=== PATIENT | female | born 1965 | race Caucasian/White ===

== ENCOUNTER 2025-05-03 20:44 | Inpatient (IN) | payer MEDICARE, SELFPAY ==
[2025-05-03 22:34] VITALS: BP 151/86; PULSE 80; RESP 17; TEMP 36.7; O2SAT 100; BMI 18.2
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
[2025-05-04 08:00] VITALS: BP 153/84; PULSE 94; RESP 18; O2SAT 94
[2025-05-04 08:36] LABS: Hemoglobin A1C 81.0472 umol/L; Total Hemoglobin (HGBA1C) 2580.1810 umol/L
[2025-05-04 08:52] LABS: Cholesterol 187 mg/dL (<200); HDL Cholesterol 68 mg/dL (>40); Magnesium 1.8 mg/dL (1.6-2.6); Triglycerides 57 mg/dL (<150)
[2025-05-04 09:09] LABS: Free T4 (Free Thyroxine) 0.81 ng/dL (0.71-1.85); Thyroid Stimulating Hormone 1.39 uIU/mL (0.32-4.0)
[2025-05-04 09:21] LABS: Folate 12.3 ng/mL (> or = 4.0); Vitamin B12 434 pg/mL (200-900)
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
[2025-05-04 20:00] VITALS: RESP 15
[2025-05-05 07:53] VITALS: BP 100/71; PULSE 80; RESP 18; TEMP 36.6; O2SAT 100
[2025-05-05] MEDS: Nicotine 21 MG PATCH.TD24 TRANSDERMA (15:40)
--- NOTE | 2025-05-05 16:48 | HO.PSYCHPN ---
Subjective Subjective Date of Service: 05/05/25 Reason For Visit: Disorder, manic, severe, with psychotic features Subjective Notes: Section 12B Interim History: Pt approached tw first thing to demand a discharge date. Pt was offered education about donna and she verbally exploded-precipitating team to stand between us during this outburst. Denies donna-accuses this typewriters functional tester of not knowing what donna is due to ZUMBA INSTRUCTOR vs MD status. Caustic. Pt approached tw later in the a.m. We met x 2. She was pressured, hyperverbal, tangential and poorly organized, covering several topics. She refuses antipsychotics as she is not manic, but enlightened She will accept Valium prn which was adjusted. Her behaviors on the unit have negatively engaged her peers and she responds that she does not care as she enjoys making scenes. She would like to be considered for discharge, asks for a real MD who will understand her. Medication Compliance: Intermittent Side effects from medications: No Attending Groups: No Review of Systems Acute medical concerns: No Review of Systems Review of Systems Denies Mental Status Exam Mental Status Exam Patient Appearance: Fatigued, Disheveled, Inappropriate, Unkempt and Bizarre Patient Orientation: Person, Place and Situation Level of Consciousness: Restless, Alert and Inappropriate Patient Behavior: Talkative, Hyperactive, Suspicious, Restless, Belligerent, Wandering, Verbal Threats, Anxious, Resistive to Care, Distractible, Confused, Good Eye Contact and Impulsive Mood Description: Hostile, Labile and Angry Affect Description: Labile Patient Cognition Impaired: Yes Ability to Follow Directions: Fair Speech Pattern: Spontaneous Speech, Rambling, Animated, Loud, Pressured and Excited Memory Description: Remote Impaired Hallucinations: None Delusions: Paranoid Ideation Thought Process: Illogical and Distracted Thought Content: positive for Flight of Ideas, positive for Racing, positive for Circumstantial, positive for Perseveration, positive for Preoccupation, positive for Tangential and positive for Disorganized Depressive Symptoms: Increased Irritability and Difficulty Concentrating Abnormal Motor Activity Signs and Symptoms: Agitation and Restlessness Judgement: Poor Diagnostics Vital Signs (24Hr): Vital Signs - 24 hr 05/04/25 20:00 05/05/25 07:53 Temperature 97.9 F Pulse Rate 80 Respiratory Rate 15 18 Blood Pressure 100/71 Pulse Oximetry 100 Oxygen Delivery Method Room Air BMI result Body Mass Index 18.2 Labs Labs: Laboratory Results - last 48 hr 05/04/25 08:07 Estimat Average Glucose 97 Hemoglobin A1c % 5.0 Magnesium 1.8 Triglycerides 57 Cholesterol 187 LDL Cholesterol, Calc 108 H HDL Cholesterol 68 Vitamin B12 434 Folate 12.3 TSH 1.39 Free T4 0.81 Medications Medications Current Medications Acetaminophen (Acetaminophen 325 Mg Tablet) 650 mg PO Q6H PRN PRN Reason: Headache/Pain, Scale 1-10 Last Admin: 05/05/25 14:59 Dose: 650 mg Al Hydroxide/Mg Hydroxide (Magnesium Hydrox/Alum Hydrox 30 Ml Oral.Susp) 30 ml PO Q6H PRN PRN Reason: Heartburn/Nausea Diazepam (Diazepam 5 Mg Tablet) 10 mg PO QID PRN PRN Reason: anxiety Last Admin: 05/05/25 10:41 Dose: 10 mg Dicyclomine HCl (Dicyclomine Hcl 10 Mg Capsule) 20 mg PO QIDACHS [facility] Last Admin: 05/05/25 16:27 Dose: Not Given Docusate Sodium (Docusate Sodium 100 Mg Capsule) 100 mg PO BEDTIME [facility] Last Admin: 05/04/25 21:20 Dose: 100 mg Folic Acid (Folic Acid 1 Mg Tablet) 1 mg PO DAILY [facility] Last Admin: 05/05/25 08:35 Dose: Not Given Hydroxyzine HCl (Hydroxyzine Hcl 25 Mg Tablet) 25 mg PO Q6H PRN PRN Reason: mild anxiety Last Admin: 05/05/25 14:59 Dose: 25 mg Magnesium Hydroxide (Milk Of Magnesia 30 Ml Oral.Susp) 30 ml PO DAILY PRN PRN Reason: Constipation Melatonin (Melatonin 3 Mg Tablet) 6 mg PO BEDTIME [facility] Last Admin: 05/04/25 22:03 Dose: Not Given Multivitamins/Vitamin C (Multivitamin Tablet) 1 tab PO DAILY [facility] Last Admin: 05/05/25 08:35 Dose: Not Given Nicotine (Nicotine 21 Mg Patch.Td24) 21 mg TRANSDERMA DAILY [facility] Last Admin: 05/05/25 15:40 Dose: 21 mg Olanzapine (Olanzapine 5 Mg Tablet) 5 mg PO Q4H PRN PRN Reason: donna,agitation Olanzapine (Olanzapine 5 Mg Tablet) 5 mg PO BID [facility] Quetiapine Fumarate (Quetiapine Fumarate 50 Mg Tablet) 50 mg PO BEDTIME [facility] Last Admin: 05/04/25 22:04 Dose: Not Given Quetiapine Fumarate (Quetiapine Fumarate 50 Mg Tablet) 50 mg PO Q4H PRN PRN Reason: anxiety Senna (Sennosides 8.6 Mg Tablet) 17.2 mg PO BEDTIME PRN PRN Reason: Constipation Last Admin: 05/04/25 21:20 Dose: 17.2 mg Thiamine HCl (Thiamine Hcl 100 Mg Tablet) 100 mg PO DAILY PEE Last Admin: 05/05/25 08:35 Dose: Not Given Trazodone HCl (Trazodone Hcl 50 Mg Tablet) 50 mg PO BEDTIME MRX1 PRN PRN Reason: Insomnia Last Admin: 05/04/25 02:45 Dose: 50 mg Allergies Allergies Allergy/AdvReac Type Severity Reaction Status Date / Time No Known Allergies Allergy Verified 05/03/25 22:21 Assessment & Plan Assessment & Plan (1) Bipolar affective, manic: Status: Acute Code(s): F31.10 - Bipolar disorder, current episode manic without psychotic features, unspecified (2) Alcohol use disorder, severe, dependence: Status: Acute Code(s): F10.20 - Alcohol dependence, uncomplicated Plan Admit, Section XII Refusing any meds except Valium, Ativan Collateral Contact Refusing diagnostics Stabilization efforts 05/05: Valium 10 mg qid prn anxiety Olanzapine 5 mg bid Probable Section 7 Reason for continued inpatient stay Substantial Risk for: inability to function and rapid decompensation Time Spent With Patient Time: Total time managing care of this patient today ____ minutes.
[2025-05-05 20:00] VITALS: BP 112/86; PULSE 87; RESP 15; TEMP 36.6; O2SAT 98
--- NOTE | 2025-05-06 | ECG_ITS ---
Test Reason : CP/ fever/chills Blood Pressure : */* mmHG Vent. Rate : 110 BPM Atrial Rate : 110 BPM P-R Int : 140 ms QRS Dur : 82 ms QT Int : 322 ms P-R-T Axes : 56 66 56 degrees QTcB Int : 435 ms Sinus tachycardia Otherwise normal ECG No previous ECGs available Referred By: Emilio Reyez Electronically Signed By: Hema Garcia
[2025-05-06 08:00] VITALS: BP 138/68; PULSE 87; RESP 18; TEMP 37.4; O2SAT 100
[2025-05-06] MEDS: Nicotine 21 MG PATCH.TD24 TRANSDERMA (08:05)
[2025-05-06 20:00] VITALS: BP 120/69; PULSE 115; TEMP 36.8; O2SAT 96
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
[2025-05-07 08:00] VITALS: RESP 18
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
[2025-05-08 09:34] VITALS: BP 117/67; PULSE 94; TEMP 36.8; O2SAT 95
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
[2025-05-09 20:00] VITALS: BP 114/63; PULSE 95; TEMP 36.6; O2SAT 99
--- NOTE | 2025-05-09 21:51 | PC.NURSE ---
Patient refused nearly all scheduled HS medications, loudly saying Don't fucking talk to me about those bipolar meds ever fucking again! I'M NOT BIPOLAR AND YOUR DOCTORS ARE STUPID! This specification writer had not mentioned the word bipolar in any of our exchange. Patient was very angry and dismissive with this specification writer, refusing any assessment.
[2025-05-10 08:00] VITALS: BP 129/67; PULSE 87; RESP 18; TEMP 36.4; O2SAT 99
--- NOTE | 2025-05-10 16:18 | HO.PSYCHPN ---
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 Patient Time: Total time managing care of this patient today ____ minutes.
[2025-05-10 19:58] LABS: Alanine Aminotransferase 21 U/L (0-31); Albumin Level 3.9 g/dL (3.5-5.0); Alkaline Phosphatase 52 U/L (39-117); Anion Gap 10 (12-20); Aspartate Amino Transferase 18 U/L (5-31); Blood Urea Nitrogen 9 mg/dL (9-16); Calcium 9.1 mg/dL (8.4-10.2); Carbon Dioxide 25 mmol/L (22-29); Chloride 103 mmol/L (96-108); Creatinine Clr Calc Pharmacy 97.2; Estimated Glomerular Filt Rate > 60; Potassium 4.3 mmol/L (3.3-5.1); Sodium 134 mmol/L (135-145); Total Protein 6.8 g/dL (6.5-8.0)
[2025-05-11 08:00] VITALS: BP 142/52; PULSE 98; RESP 18; TEMP 36; O2SAT 99
[2025-05-11 09:42] VITALS: BMI 19.3
--- NOTE | 2025-05-11 16:51 | P.PNPSI_ITS ---
Subjective Subjective Date of Service: 05/11/25 Reason For Visit: Disorder, manic, severe, with psychotic features Interim History: Met with patient; discussed with RN. Patient remains manic, grandiose, pressured, intrusive. Patient only willing to take Valium. Poor insight into her mental state. Patient says she wants to be discharged so she can go to [place]. She says she is very wealthy. Talks about her ex , children and how accomplished they are. She asks this check writer salesperson where he is from, and then says she met the and had lunch with him and his family but when asked what his name was she doesn't know. I don't remember the names. I was always drunk. Review of Systems Review of Systems Denies shortness of breath or trouble breathing. Denies cough. Denies fatigue. Denies SI. Reports constipation. Yes all other systems are reviewed and are negative and Unobtainable due to mental status Mental Status Exam Mental Status Exam Narrative: Pt is alert and oriented; behavior is manic, hyperverbal, intrusive, verbally aggressive, posturing at times, yelling at staff; patient is not in distress; dressed in casual attire, disheveled, matted hair; mood is described as i'm angry... and affect intense; eye contact intense; Speech is pressured, loud, rambling and very difficult to interrupt; psychomotor agitation present; thought process is goal directed, excessively circumstantial and often tangential; Thought content is angry about being hospitalized; life exploits; denies any SI/HI. Denies AVH Patients insight and judgment are impaired. Patient Appearance: Disheveled, Inappropriate, Unkempt and Bizarre Patient Orientation: Person, Place and Situation Level of Consciousness: Restless, Alert and Inappropriate Patient Behavior: Talkative, Hyperactive, Suspicious, Restless, Belligerent, Wandering, Verbal Threats, Anxious, Resistive to Care, Distractible, Confused, Good Eye Contact and Impulsive Mood Description: Suspicious, Anxious, Labile and Angry Affect Description: Anxious and Labile Patient Cognition Impaired: Yes Ability to Follow Directions: Poor Speech Pattern: Spontaneous Speech, Rambling, Animated, Loud, Pressured and Excited Memory Description: Remote Impaired Diagnostics Vital Signs (24Hr): Vital Signs - 24 hr 05/11/25 08:00 Temperature 96.8 F Pulse Rate 98 Respiratory Rate 18 Blood Pressure 142/52 H Pulse Oximetry 99 Oxygen Delivery Method Room Air BMI result Body Mass Index 19.3 Labs 05/10/25 19:26 Labs: Laboratory Results - last 48 hr 05/10/25 19:26 Sodium 134 L Potassium 4.3 Chloride 103 Carbon Dioxide 25 Anion Gap 10 L BUN 9 Creatinine 0.46 L Estim Creat Clear Calc 97.2 Estimated GFR > 60 Random Glucose 107 Calcium 9.1 Total Bilirubin 0.1 AST 18 ALT 21 Alkaline Phosphatase 52 Total Protein 6.8 Albumin 3.9 Medications Medications Current Medications Acetaminophen (Acetaminophen 325 Mg Tablet) 650 mg PO Q6H PRN PRN Reason: Headache/Pain, Scale 1-10 Last Admin: 05/09/25 11:42 Dose: 650 mg Al Hydroxide/Mg Hydroxide (Magnesium Hydrox/Alum Hydrox 30 Ml Oral.Susp) 30 ml PO Q6H PRN PRN Reason: Heartburn/Nausea Diazepam (Diazepam 5 Mg Tablet) 10 mg PO TID PRN PRN Reason: anxiety Last Admin: 05/11/25 07:54 Dose: 10 mg Dicyclomine HCl (Dicyclomine Hcl 10 Mg Capsule) 20 mg PO QIDACHS PRN PRN Reason: abdominal pain Docusate Sodium (Docusate Sodium 100 Mg Capsule) 100 mg PO BID [facility] Last Admin: 05/11/25 07:54 Dose: 100 mg Folic Acid (Folic Acid 1 Mg Tablet) 1 mg PO DAILY [facility] Last Admin: 05/11/25 07:55 Dose: 1 mg Hydroxyzine HCl (Hydroxyzine Hcl 25 Mg Tablet) 25 mg PO Q6H PRN PRN Reason: mild anxiety Last Admin: 05/11/25 15:53 Dose: 25 mg Magnesium Hydroxide (Milk Of Magnesia 30 Ml Oral.Susp) 30 ml PO DAILY PRN PRN Reason: Constipation Melatonin (Melatonin 3 Mg Tablet) 6 mg PO BEDTIME [facility] Last Admin: 05/10/25 21:18 Dose: Not Given Multivitamins/Vitamin C (Multivitamin Tablet) 1 tab PO DAILY [facility] Last Admin: 05/11/25 07:55 Dose: 1 tab Nicotine (Nicotine 21 Mg Patch.Td24) 21 mg TRANSDERMA DAILY [facility] Last Admin: 05/11/25 07:56 Dose: Not Given Olanzapine (Olanzapine 10 Mg Tablet) 10 mg PO Q4H PRN PRN Reason: donna,agitation Olanzapine (Olanzapine 10 Mg Tablet) 10 mg PO BID [facility] Last Admin: 05/11/25 07:56 Dose: Not Given Ondansetron HCl (Ondansetron Odt 4 Mg Tab.Rapdis) 4 mg TRANSLINGU Q6H PRN PRN Reason: Nausea and Vomiting Last Admin: 05/08/25 21:08 Dose: 4 mg Quetiapine Fumarate (Quetiapine Fumarate 50 Mg Tablet) 50 mg PO BEDTIME [facility] Last Admin: 05/10/25 21:18 Dose: Not Given Quetiapine Fumarate (Quetiapine Fumarate 50 Mg Tablet) 50 mg PO Q4H PRN PRN Reason: anxiety Senna (Sennosides 8.6 Mg Tablet) 17.2 mg PO DAILY PRN PRN Reason: Constipation Last Admin: 05/11/25 07:54 Dose: 17.2 mg Thiamine HCl (Thiamine Hcl 100 Mg Tablet) 100 mg PO DAILY [facility] Last Admin: 05/11/25 07:54 Dose: 100 mg Trazodone HCl (Trazodone Hcl 50 Mg Tablet) 50 mg PO BEDTIME MRX1 PRN PRN Reason: Insomnia Last Admin: 05/10/25 21:12 Dose: 50 mg Allergies Allergies Allergy/AdvReac Type Severity Reaction Status Date / Time No Known Allergies Allergy Verified 05/03/25 22:21 Assessment & Plan Assessment & Plan (1) Bipolar affective, manic: Status: Acute Code(s): F31.10 - Bipolar disorder, current episode manic without psychotic features, unspecified (2) Alcohol use disorder, severe, dependence: Status: Acute Code(s): F10.20 - Alcohol dependence, uncomplicated Plan Admit, Section XII Refusing any meds except Valium, Ativan Collateral Contact Refusing diagnostics Stabilization efforts 05/05: Valium 10 mg qid prn anxiety Olanzapine 5 mg bid Probable Section 7 05/11: Remains manic. Refusing treatment other than Valium. Reason for continued inpatient stay Substantial Risk for: harm to self, harm to others, inability to function and rapid decompensation Time Spent With Patient Time: Total time managing care of this patient today ____ minutes.
[2025-05-11 19:29] VITALS: PULSE 101; TEMP 36.6; O2SAT 98
[2025-05-12 08:00] VITALS: RESP 18
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
[2025-05-12 19:44] VITALS: BP 158/90; PULSE 97; RESP 20; TEMP 36.6; O2SAT 98
[2025-05-13 08:00] VITALS: BP 114/74; PULSE 92; RESP 18; TEMP 36.2; O2SAT 97
--- NOTE | 2025-05-13 11:06 | P.PNPSI_ITS ---
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 and impulse control. Patient's improvement likely due to Valium which has helped patient sleep and prolonged sobriety combined with time. Remains without insight into bipolar disorder however does want to cut back on her drinking alcohol. While team can not verify that she has resources take care of herself, patient has been taking care of herself.... So it seems -Patient also willing to try Vraylar since it can help with depression -will continue to monitor for now PLAN: section 7 q15 Patient now allowed access to kitchen and milieu starting pt on Gabapentin 300mg TID at her request which she says has helped her curb her alcohol cravings in the past; it may also have a mild/modest effect on manic symptoms (may not give on discharge given risk of respiratory depression when combined with alcohol) Start Vraylar 1.5 mg daily Reduced to Diazepam 10 mg t.i.d.. p.r.n. 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 DC Depakote: pt said made her agitated in past (elevated ammonia?) Ordered labs to check sodium however patient has refused lab work Admit, Section XII Refusing any meds except Valium, Ativan Collateral Contact Refusing diagnostics Stabilization efforts Patient educated on: diagnosis, medication risk/benefits and substance abuse Informed Consent: understands, does not understand and further education needed Reason for continued inpatient stay Substantial Risk for: inability to function Time Spent With Patient Time: Total time managing care of this patient today ____ minutes.
[2025-05-13 20:05] VITALS: BP 125/71; PULSE 97; RESP 16; TEMP 36.6; O2SAT 100
[2025-05-14 08:00] VITALS: BP 105/56; PULSE 115; TEMP 35.9; O2SAT 94
--- NOTE | 2025-05-14 17:33 | P.PNPSI_ITS ---
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 with depression -will continue to monitor for now PLAN: section 7 q15 Patient now allowed access to kitchen and milieu Gabapentin 300mg TID at her request which she says has helped her curb her alcohol cravings in the past; it may also have a mild/modest effect on manic symptoms (may not give on discharge given risk of respiratory depression when combined with alcohol) increased to Vraylar 1.5 mg BID Reduced to Diazepam 10 mg BID. p.r.n. 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
[2025-05-14 20:00] VITALS: BP 122/84; PULSE 90; RESP 18; TEMP 36.4; O2SAT 99
[2025-05-15 08:00] VITALS: BP 129/81; PULSE 81; TEMP 36.3
--- NOTE | 2025-05-15 17:41 | HO.PSYCHPN ---
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 unsupported in the community and team can not verify that she has resources to take care of herself. Based on patient's presentation, collateral reporting and self report, patient is not safe for discharge and is at risk for either hurting someone or being hurt by people she aggravates. Team agrees the need to file for civil commitment. Updated on 05/13 while patient remains with pressured speech and very circumstantial and also tangential and thought process, her behaviors are much improved. She is no longer intrusive, causing arguments or bothering peers but is actually in good behavioral and impulse control. Patient's improvement likely due to Valium which has helped patient sleep and prolonged sobriety combined with time. Remains without insight into bipolar disorder however does want to cut back on her drinking alcohol. While team can not verify that she has resources take care of herself, patient has been taking care of herself.... So it seems -Patient also willing to try Vraylar since it can help with depression -will continue to monitor for now PLAN: section 7 q15 Patient now allowed access to kitchen and milieu Gabapentin 300mg TID at her request which she says has helped her curb her alcohol cravings in the past; it may also have a mild/modest effect on manic symptoms (may not give on discharge given risk of respiratory depression when combined with alcohol) Change to Vraylar 3 mg q.h.s. Reduced to Diazepam 10 mg BID. p.r.n. 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; currently diazepam is the only only thing patient will take and has helped subdue some of her manic behaviors) staci Zyprexa STACI Depakote: pt said made her agitated in past (elevated ammonia?) Ordered labs to check sodium however patient has refused lab work Admit, Section XII Refusing any meds except Valium, Ativan Collateral Contact Refusing diagnostics Stabilization efforts Patient educated on: diagnosis, medication risk/benefits, substance abuse and therapeutic strategies Informed Consent: understands and further education needed Reason for continued inpatient stay Substantial Risk for: stable for discharge and med/psych decompensation Time Spent With Patient Time: Total time managing care of this patient today ____ minutes.
[2025-05-15 20:00] VITALS: BP 119/70; PULSE 94; TEMP 36.6; O2SAT 100
[2025-05-16 08:00] VITALS: BP 125/71; PULSE 91; RESP 16; TEMP 36.1; O2SAT 99
--- NOTE | 2025-05-16 15:37 | HO.PSYCHPN ---
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 Ativan Collateral Contact Refusing diagnostics Stabilization efforts Time Spent With Patient Time: Total time managing care of this patient today ____ minutes.
[2025-05-17 08:00] VITALS: BP 129/76; PULSE 90; RESP 16; TEMP 35.8; O2SAT 100
[2025-05-17 19:47] VITALS: BP 141/83; PULSE 96; TEMP 35.9; O2SAT 99
--- NOTE | 2025-05-17 22:50 | HO.PSYCHPN ---
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 section 7 q15 Gabapentin 300mg TID at her request which she says has helped her curb her alcohol cravings in the past; it may also have a mild/modest effect on manic symptoms (may not give on discharge given risk of respiratory depression when combined with alcohol) Change to Vraylar 3 mg q.h.s. Reduced to Diazepam 10 mg BID. p.r.n. 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
--- NOTE | 2025-05-18 05:47 | PC.NURSE ---
At approximately 0520, the patient began steadily increasing in volume, arguing that she should be allowed to watch the news in the common area. A peer in that area requested to watch television in group room A, and was allowed to do so. This patient became angry that she could not watch television in group room A, and began verbally abusing staff loudly. She stated that she was racist against [employer], that one of the nurses should go back to their fucking country, and told this investment underwriter you're a fucking rainbow bitch, I'm going to report you to the Doctor. She then continued to berate staff, swearing and yelling, until the time of this writing.
[2025-05-18 08:00] VITALS: BP 144/85; PULSE 87; RESP 17; TEMP 35.8; O2SAT 93
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
[2025-05-19 08:00] VITALS: BP 131/85; PULSE 86; RESP 18; TEMP 35.6; O2SAT 100
--- NOTE | 2025-05-19 23:02 | P.PNPSI_ITS ---
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 Tuesday. 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 Continued to refused other medications, only take Valium. 05/19/25: Slept only for 2 hour, as usual, medication compliant to selected med, took p.r.n. Valium, hyperverbal, tangential, social, visible. Hyper focused on discharge. She wants to be discharged by 6 so that she can get to [place] for psychiatrist appointment with [facility] at 1300. Denies safety concerns. Appear to shovel, poor ADLs,. 05/18/25: Impression: Initial: Patient presented manic, hyperverbal with pressured speech and grandiose delusions. Patient has no insight that her behaviors in the community or on the unit are problematic and no insight into her psychiatric illness; she is intrusive and verbally aggressive; patient has postured been menacing towards staff, has been aggravating patients on the unit to the point where more than one patient expressed thoughts to harm her and patient has had to be limited to certain parts of the milieu and lost privileges to the kitchen; patient herself reports that she has been assaultive in the community and over the past several weeks taken to the hospital several times out of concern for her mental health crisis and for problematic behaviors in the community. 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 Patient does not believe she has a mental illness and refuses mood stabilizing medication. Patient also says she will continue to abuse alcohol. Patient appears to be unsupported in the community and team can not verify that she has resources to take care of herself. Based on patient's presentation, collateral reporting and self report, patient is not safe for discharge and is at risk for either hurting someone or being hurt by people she aggravates. Team agrees the need to file for civil commitment. Updated on 05/13 while patient remains with pressured speech and very circumstantial and also tangential and thought process, her behaviors are much improved. She is no longer intrusive, causing arguments or bothering peers but is actually in good behavioral and impulse control. Patient's improvement likely due to Valium which has helped patient sleep and prolonged sobriety combined with time. Remains without insight into bipolar disorder however does want to cut back on her drinking alcohol. While team can not verify that she has resources take care of herself, patient has been taking care of herself.... So it seems -Patient also willing to try Vraylar since it can help with depression -will continue to monitor for now Update 05/17: pt much improved; manic episode mostly resolved. PLAN: section 7 q15 Gabapentin 300mg TID at her request which she says has helped her curb her alcohol cravings in the past; it may also have a mild/modest effect on manic symptoms (may not give on discharge given risk of respiratory depression when combined with alcohol) Change to Vraylar 3 mg q.h.s. Reduced to Diazepam 10 mg BID. p.r.n. 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; currently diazepam is the only only thing patient will take and has helped subdue some of her manic behaviors) kristen Dexter DC Depakote: pt said made her agitated in past (elevated ammonia?) Ordered labs to check sodium however patient has refused lab work Admit, Section XII Refusing any meds except Valium, Ativan Collateral Contact Refusing diagnostics Stabilization efforts Patient educated on: diagnosis, medication risk/benefits, substance abuse and therapeutic strategies Informed Consent: understands and further education needed Reason for continued inpatient stay Substantial Risk for: med/psych decompensation Time Spent With Patient Time: Total time managing care of this patient today ____ minutes.
[2025-05-20 08:00] VITALS: BP 133/78; PULSE 98; RESP 18; TEMP 36.3; O2SAT 99
--- NOTE | 2025-05-20 09:36 | PM.PSYDC ---
DS: Providers Provider Date of Service: 05/20/25 Date of admission: 05/03/25 20:44 Date of discharge: 05/20/25 Primary care physician: Unknown Physician Attending physician on admission: Alex Wilder Consults: 05/03/25 22:52 Consult to Hospitalist Routine Comment: Consulting [place] [facility] Reason For Exam: Transfer pt Attending physician on discharge: Alex Wilder DS: Diagnosis Discharge Diagnosis (1) Bipolar affective, manic: Status: Acute (2) Alcohol use disorder, severe, dependence: Status: Acute DS: Medications Discharge Medications Home Medications: Home Medications ?Medication ?Instructions ?Recorded ?Confirmed cholecalciferol (vitamin D3) 50,000 unit PO QMONTH 05/03/25 05/03/25 Previous Rx's ?Medication ?Instructions ?Recorded cariprazine 3 mg capsule (Vraylar) 3 mg PO BEDTIME 30 days #30 caps 05/19/25 diazepam 10 mg tablet 10 mg PO DAILY PRN severe anxiety 05/19/25 30 days #4 tabs docusate sodium 100 mg capsule 100 mg PO BID 30 days #60 caps 05/19/25 folic acid 1 mg tablet 1 mg PO DAILY 30 days #30 tabs 05/19/25 hydroxyzine HCl 25 mg tablet 25 mg PO TID PRN mild anxiety 30 05/19/25 days #30 tabs multivitamin (Daily-Timur tablet) 1 tab PO DAILY 30 days #30 tabs 05/19/25 sennosides 17.2 mg tablet 17.2 mg PO DAILY PRN continued 05/19/25 constipation 30 days #30 tabs thiamine mononitrate (vit B1) 100 100 mg PO DAILY 30 days #30 tabs 05/19/25 mg tablet trazodone 50 mg tablet 50 mg PO BEDTIME PRN Insomnia 30 05/19/25 days #30 tabs DS: Summary Time Spent with Patient Time attestation: Total time managing care of this patient today ____ minutes. Discharge Plan Discharge Anticipated Discharge Date/Time: 05/20/25 09:00 Patient Disposition: Home, Self-Care Discharge Diagnosis: Bipolar I disorder, recurrent, severe Referrals: [facility] [Other] - 05/20/25 1:00 pm Referral Note: Hospital discharge appointment with addictions medicine at [facility] Patient will attend scheduled appointment and then be setup with appointment for psychiatry services [facility] [Other] - 1 Week Referral Note: [facility] [Other] - 1 Week Referral Note: [facility] [Other] - 1 Week Referral Note: [facility] [Other] - 1 Week Referral Note: [facility] Crisis services 09/05 Physician,Unknown J [Primary Care Provider, Medical] - 1 Week Referral Note: Pt does not have a PCP- encouraged to establish care once she gets to [facility] Medications: New Vraylar 3 mg Capsule 3 mg PO BEDTIME 30 Days Qty: 30 0RF diazepam 10 mg tablet 10 mg PO DAILY PRN (Reason: severe anxiety) 30 Days Qty: 4 0RF hydroxyzine HCl 25 mg Tablet 25 mg PO TID PRN (Reason: mild anxiety) 30 Days Qty: 30 0RF trazodone 50 mg Tablet 50 mg PO BEDTIME PRN (Reason: Insomnia) 30 Days Qty: 30 0RF sennosides 17.2 mg tablet 17.2 mg PO DAILY PRN (Reason: continued constipation) 30 Days Qty: 30 0RF thiamine mononitrate (vit B1) 100 mg Tablet 100 mg PO DAILY 30 Days Qty: 30 0RF multivitamin [Daily-Timur] Tablet 1 tab PO DAILY 30 Days Qty: 30 0RF folic acid 1 mg Tablet 1 mg PO DAILY 30 Days Qty: 30 0RF Continued cholecalciferol (vitamin D3) 50,000 unit PO QMONTH Changed docusate sodium 100 mg Capsule 100 mg PO BID 30 Days Qty: 60 0RF Rx Instructions: hold for loose stool Discontinued dicyclomine 20 mg Tablet 20 mg PO QID hydroxyzine HCl 25 mg Tablet 25 mg PO Q4-5H Multivitamin And Mineral 1 tab PO DAILY acetaminophen 650 mg PO Q4-6H PRN (Reason: Pain, Mild) folic acid 1 mg PO 1XD melatonin 5 mg PO BEDTIME quetiapine 50 tab PO Q4-5H thiamine HCl (vitamin B1) 100 mg PO DAILY Discharge Orders: Discharge Order (Routine); Ordered 05/20/25 Ordered By: Alex Wilder Diet: Regular diet Activity on Discharge: As tolerated Stand Alone Forms: Patient Portal Discharge page, Community Support Print Language: Danish Care Plan Goals: Maintain mood and safe behaviors Take medications as prescribed Continue to pursue sobriety Practice coping skills Continue with outpatient providers and reach out to them as needed Health Concerns: Mood stability and behaviors Sobriety Chronic Hyponatremia Plan of Treatment: Follow up with your PCP, psychiatric provider and other outpatient providers regarding above concerns Take medications as prescribed Assessment: Risk assessment at time of discharge:? Patient was interviewed prior to discharge and found to be fully oriented and without any SI or HI. Patient has improved insight and judgment and wants to continue treatment. Patient is not in imminent risk of harm to self or others and has a safety plan that includes presenting to the closest ER or calling 911 if feeling unsafe.? Patient has been observed closely by nursing and unit staff throughout admission; patient has not engaged in any behaviors that suggest dangerousness to self or others and has demonstrated appropriate behaviors and impulse control Discharge Date/Time: 05/20/25 09:06
== END 2025-05-20 09:06 | disposition home or self-care (01) | DRG 885 ==
PROVIDERS: Clinical Nurse Specialist Psychiatric/Mental Health, Adult; Admitting Provider Psychiatry & Neurology Psychiatry; Visit Provider Psychiatry & Neurology Psychiatry
DX: F31.10 Bipolar disorder, current episode manic without psychotic features, unspecified (principal); F10.20 Alcohol dependence, uncomplicated; E87.1 Hypo-osmolality and hyponatremia; Z79.899 Other long term (current) drug therapy
CPT/HCPCS: 36415; 80053; 80061; 82607; 82746; 83036; 83735; 84439; 84443; 93005

== ENCOUNTER 2025-05-03 20:44 | Outpatient (BNV) | payer MEDICARE, SELFPAY | END 2025-05-06 19:32 | PROVIDERS: Admitting Provider Psychiatry & Neurology Psychiatry; Visit Provider Internal Medicine Cardiovascular Disease | DX: R00.0 Tachycardia, unspecified (principal) | CPT/HCPCS: 93010 ==

== ENCOUNTER → 2025-05-03 20:44 | Outpatient (BNV) | payer MEDICARE, SELFPAY | PROVIDERS: Admitting Provider Psychiatry & Neurology Psychiatry; Visit Provider Student in an Organized Health Care Education/Training Program | DX: Z00.8 Encounter for other general examination (principal) | CPT/HCPCS: 99222 ==

== ENCOUNTER → 2025-05-03 20:44 | Outpatient (BNV) | payer MEDICARE, SELFPAY | PROVIDERS: Admitting Provider Psychiatry & Neurology Psychiatry; Visit Provider Clinical Nurse Specialist Psychiatric/Mental Health, Adult | DX: F31.12 Bipolar disorder, current episode manic without psychotic features, moderate (principal); F10.20 Alcohol dependence, uncomplicated | CPT/HCPCS: 90792; 99232 ==